=== PATIENT | female | born 1990 | race Caucasian/White ===

== ENCOUNTER 2018-06-12 20:43 | Emergency (ER) | payer OTHER ==
[~2018-06-12 20:43] MED LIST: BISM-40 PO; DICY10CA62 PO; DIPH-1 PO; NAP250 PO; NORG1TAB74 PO; NORG1TAB76 PO; RIZA10TA22 PO; TRAN650T5 PO; TREXAMET; [UNRECOGNIZED DRUG - CODE] PO
--- NOTE | 2018-06-12 20:47 | ER Report ---
History and Physical Time Seen By MD: 20:45 HPI/ROS CHIEF COMPLAINT: Right ankle injury HISTORY OF PRESENT ILLNESS: 27-year-old female was rollerblading when she fell, rolling over the outer aspect of her right ankle. She's complaining of severe pain. She felt a popping sensation in her ankle. She notes 6/10 throbbing pain aggravated by movement and weightbearing. She denies any other injuries. Allergies: Coded Allergies: adhesive (Verified Adverse Reaction, Mild, 06/12/18) Home Meds Active Scripts Hydrocodone Bit/Acetaminophen (HYDROCODON-ACETAMINOPHEN 5-325) 1 Each Tablet, 1 EACH PO Q4-6H PRN for PAIN, #15 TAKE ONE TABLET BY MOUTH EVERY 4-6 HOURS NEEDED FOR PAIN Prov:EZEQUIEL WYNNE DO 06/12/18 Ondansetron 4 Mg Odt (ONDANSETRON 4 MG ODT) 4 Mg Tab.rapdis, 4 MG PO Q6H PRN for NAUSEA/VOMITING, #15 TAB Prov:EZEQUIEL WYNNE 06/12/18 Reported Medications Etonogestrel/Ethinyl Estradiol (NUVARING VAGINAL RING) 1 Each Vag.ring, 1 EACH VG, VAG.RING 06/12/18 Reviewed Nurses Notes: Yes Old Medical Records Reviewed: Yes Smoking Status: Never Smoker Hx Substance Use Disorder: No Hx Alcohol Use: Yes (4-5 EVERY COUPLE OF WEEKS) Constitutional Vital Sign - Last 24 Hours 06/12/18 06/12/18 20:46 21:32 Temp 98.2 Pulse 120 115 Resp 18 18 B/P (MAP) 136/86 109/87 (94) Pulse Ox 97 97 O2 Delivery Room Air Room Air Physical Exam General appearance: Alert no distress. Respiratory: Chest is non tender, lungs are clear to auscultation. Cardiac: Regular rate and rhythm Extremities: Examination of the right lower extremity reveals soft tissue swelling and tenderness both medially and laterally. There is minimal swelling. The forefoot is unremarkable. It is neurovascularly intact. Patient de monstrates decreased range of motion of the ankle secondary to pain. DIFFERENTIAL DIAGNOSIS: After history and physical exam differential diagnosis was considered for sprain, strain, fracture, dislocation, contusion. Medical Decision Making EKG/Imaging Imaging X-ray: Right ankle, 3 views was obtained. I viewed the images myself on the PACS system. My interpretation of the images is: There is a nondisplaced fracture on the posterior segment of the distal tibia. The radiologist interpretation had no clinically significant variation from this interpretation. ED Course/Re-evaluation ED Course Patient was admitted to an examination room. H&P was done. The differential diagnoses was considered. On clinical examination. Patient has right ankle pain. She has significant injury. Diagnostic x-rays are performed. Patient was offered medication for pain but declined. Her x-rays show a nondisplaced fracture of the posterior aspect of the tibia. Patient's placed in a posterior splint by nursing staff. It was checked by myself after application and shows good placement and alignment and the distal toes are neurovascularly intact. And provided with crutches. Patient given a prescription for Lortab for additional pain relief. She is advised to continue ibuprofen 600 mg 3 times daily. Patient's given information to follow up with [facility] for casting and management of her fracture. Decision to Disposition Date: June 12, 2018 Decision to Disposition Time: 21:21 Depart Departure Latest Vital Signs Vital Signs Date Time Temp Pulse Resp B/P (MAP) Pulse Ox O2 Delivery O2 Flow Rate FiO2 06/12/18 21:32 115 18 109/87 (94) 97 Room Air 06/12/18 20:46 98.2 Impression: Primary Impression: Tibia fracture Condition: Improved Disposition: HOME OR SELF-CARE Referrals: VANIA REYES MD (PCP) DEXTER VILLASENOR MD New Scripts Hydrocodone Bit/Acetaminophen (HYDROCODON-ACETAMINOPHEN 5-325) 1 Each Tablet 1 EACH PO Q4-6H PRN for PAIN, #15 TAKE ONE TABLET BY MOUTH EVERY 4-6 HOURS NEEDED FOR PAIN Prov: EZEQUIEL WYNNE DO 06/12/18 Ondansetron 4 Mg Odt (ONDANSETRON 4 MG ODT) 4 Mg Tab.rapdis 4 MG PO Q6H PRN for NAUSEA/VOMITING, #15 TAB Prov: EZEQUIEL WYNNE DO 06/12/18 Patient Instructions: Ankle Fracture (ED) Additional Instructions: Follow-up with [facility]opedic group [phone], address [address] in 2-3 days for casting Problem Qualifiers Primary Impression: Tibia fracture Encounter type: initial encounter Tibia location: distal Fracture type: closed Fracture morphology: unspecified fracture morphology Laterality: right Qualified Codes: S82.301A - Unspecified fracture of lower end of right tibia, initial encounter for closed fracture EZEQUIEL WYNNE DO June 12, 2018 20:47
[2018-06-12] MEDS ORDERED: ETON1VAG7 VG (20:56)
--- NOTE | 2018-06-12 21:15 | RADIOLOGY IMAGING REPORT ---
FACILITY: [facility] - [place] PATIENT NAME: Cinda Roman : 1990 MR: [id number] V: [id number] EXAM DATE: ORDERING PHYSICIAN: EZEQUIEL WYNNE TECHNOLOGIST: Location: [facility] - [place] Patient: Cinda Roman : 1990 Visit/Account:[id number] Date of Sevice: 06/12/2018 EXAMINATION: Right ankle 3 views HISTORY: Injury. Rolled ankle. COMPARISON: None. FINDINGS: On the lateral view there is linear lucency extending vertically along the posterior malleolus of the tibia. While this partially aligns with the posterior margin of the superimposed fibula, appearance is moderately concerning for a nondisplaced posterior malleolus fracture. The medial and lateral malleoli appear intact. Joint space is preserved along the ankle mortise. Likely ankle joint effusion noted on the lateral view. IMPRESSION: Suspected nondisplaced fracture of the posterior malleolus on the lateral view, with a l ikely ankle joint effusion. Report Dictated By: Eric Real MD at 06/12/2018 9:08 PM Report E-Signed By: Eric Real MD at 06/12/2018 9:12 PM WSN:[id number]
[2018-06-12] MEDS ORDERED: ONDANSETRON 4 MG ODT TH SL ONE (21:20)
[2018-06-12] MEDS ORDERED: ACET/HYDROC 5/325MG TH ER ONLY 2 TAB/BOTTLE PO ONE (21:20)
[2018-06-12] MEDS ORDERED: LOR5/325 PO (21:23)
[2018-06-12] MEDS ORDERED: ONDA4TAB9 PO (21:23)
[2018-06-12 21:32] VITALS: BP 109/87
== END 2018-06-12 21:35 | disposition home or self-care (01) ==
LOC: ER 21:02
DX: S82.301A Unspecified fracture of lower end of right tibia, initial encounter for closed fracture (principal); W18.39XA Other fall on same level, initial encounter; Y93.51 Activity, roller skating (inline) and skateboarding
CPT/HCPCS: 29505; 73610; 99283; S0119

== ENCOUNTER → 2018-06-27 | Outpatient (CLI) | payer OTHER ==
[~2018-06-27] MED LIST changes: +ETON1VAG7 VG; +LOR5/325 PO; +ONDA4TAB9 PO
--- NOTE | 2018-06-27 15:33 | RADIOLOGY IMAGING REPORT ---
FACILITY: [facility] [place] PATIENT NAME: Cinda Roman : 1990 MR: [id number] V: [id number] EXAM DATE: [id number] ORDERING PHYSICIAN: TABITHA KAMARA TECHNOLOGIST: Location: [facility] - [place] Patient: Cinda Roman : 1990 Visit/Account:[id number] Date of Sevice: 06/27/2018 Exam type: ANKLE 3 VIEW MIN RIGHT History: Right ankle distal fibula fracture, posterior talar fracture Comparison: June 12, 2018. Findings: Three views are submitted. Nondisplaced posterior malleolar fracture again seen. There is a faint o blique lucency along the distal metaphysis of the right fibula which is only seen on one view and may represent a superimposed shadow versus a nondisplaced fracture. The ankle mortise appears intact IMPRESSION: 1. Nondisplaced posterior malleolus fracture again seen Faint oblique lucency traverses the distal metaphysis of the right fibula which may represent a super imposed shadow versus a subtle nondisplaced fracture Report Dictated By: Camilla Garcia MD at 06/27/2018 3:25 PM Report E-Signed By: Camilla Garcia MD at 06/27/2018 3:28 PM WSN:[email or web address]
== END ==
LOC: RAD 14:00
PROVIDERS: ATTEND Orthopaedic Surgery
DX: S82.831A Other fracture of upper and lower end of right fibula, initial encounter for closed fracture (principal); S82.62XA Displaced fracture of lateral malleolus of left fibula, initial encounter for closed fracture

== ENCOUNTER → 2018-07-08 | Outpatient (CLI) | payer OTHER ==
--- NOTE | 2018-07-08 19:54 | RADIOLOGY IMAGING REPORT ---
FACILITY: [facility] PATIENT NAME: Cinda Roman : 1990 MR: [id number] V: [id number] EXAM DATE: ORDERING PHYSICIAN: TABITHA KAMARA TECHNOLOGIST: Location: [facility] Patient: Cinda Roman : 1990 Visit/Account:[id number] Date of Sevice: 07/08/2018 INDICATION: . Trauma. DATE: 07/08/2018 7:42 PM. TECHNIQUE: ANKLE 3 VIEW MIN RIGHT COMPARISON: Radiographs June 27, 2018. FINDINGS: Normal alignment without evidence of fracture or dislocation. IMPRESSION: No acute osseous abnormality. Report Dictated By: Gareth Morse MD at 07/08/2018 7:42 PM Report E-Signed By: Gareth Morse MD at 07/08/2018 7:49 PM WSN:[id number]
== END ==
LOC: RAD 18:22
PROVIDERS: ATTEND Orthopaedic Surgery
DX: M25.571 Pain in right ankle and joints of right foot (principal)

== ENCOUNTER → 2018-07-30 | Outpatient (CLI) | payer OTHER ==
--- NOTE | 2018-07-30 08:19 | RADIOLOGY IMAGING REPORT ---
FACILITY: [facility] - [place] PATIENT NAME: Cinda Roman : 1990 MR: [id number] V: [id number] EXAM DATE: ORDERING PHYSICIAN: TAIBTHA KAMARA TECHNOLOGIST: Location: [facility] Patient: Cinda Roman : 1990 Visit/Account:[id number] Date of Sevice: 07/30/2018 ANKLE 3 VIEW MIN RIGHT Indication: Right ankle pain. Comparison: Multiple right ankle radiographs dating back to 06/12/2018. Findings: 3 views of the right ankle. The posterior malleolus fracture is nearly completely healed. No new acute fracture or dislocation. Normal mineralization, joint spaces, and alignment. Impression: The posterior malleolus fracture is nearly completely healed. No new acute abnormality. Report Dictated By: Rickie Cano MD at 07/30/2018 8:11 AM Report E-Signed By: Rickie Cano MD at 07/30/2018 8:14 AM WSN:[id number]
== END ==
LOC: RAD 07:15
PROVIDERS: ATTEND Orthopaedic Surgery
DX: S82.61XD Displaced fracture of lateral malleolus of right fibula, subsequent encounter for closed fracture with routine healing (principal); S82.64XD Nondisplaced fracture of lateral malleolus of right fibula, subsequent encounter for closed fracture with routine healing

== ENCOUNTER 2018-09-19 15:13 | Outpatient (RCR) | payer OTHER ==
--- NOTE | 2018-07-11 13:48 | PT INITIAL EVALUATION ---
MEDICAL DIAGNOSIS: Right distal fibular fracture, Posterior medial malleolar fracture TREATMENT DIAGNOSIS: Right distal fibular fracture, Posterior medial malleolar fracture DATE OF ONSET: 06/12/18 SUBJECTIVE: Cinda is a 27 year old female presenting to physical therapy following recent tib-fib fracture while playing roller [employer] on Jun 12 2018. Pt was performing a transition and fell resulting in the fracture of her R distal fibula and medial malleoli posterior fracture. For 4 weeks pt has been NWB in a boot and shows good healing that she is able at this time to progress to WBAT. Pt reports that her ankle really isn't that painful, but occasionally swells up still. She is still working but used crutches or a scooter. Pt is leaving for a vacation the day following the eval for 1 week but would like to get started on using her leg. REHAB PROBLEM LIST: Increased Pain Decreased ROM Decreased Strength Decreased Endurance Decreased Balance Decreased Function Decreased ADL's Decreased Mobility Decreased Gait PREVIOUS MEDICAL HISTORY: See EMR OCCUPATION: [employer] OBJECTIVE: Pt presents with a hard boot on the R foot ambulating with crutches without WB on the R foot at all ROM: Ankle ROM (R,L): DF: 6, 15, PF: 23 pain, 43, Inv: 30 pain, 42, Ever: 10 B Strength: Ankle MMT: L only: all 5/5 Palpation: Pt is tender to palpation along the posterior malleolus and lateral fibular fracture sites as well as along the lateral malleolar ligaments. Gait: Pt presents with a hard boot on the R foot ambulating with crutches without WB on the R foot at all. With prompting pt is able to ambulate with approx 30% WB on R LE with good heel strike, and stride length. ASSESSMENT: Cinda shows signs and symptoms consistent with R tib-fib fracture as outlined by the above listed impairments. Physical therapy is indicated for this patient to improve PT function with ADL's, daily mobility, and recreational activity. Short Term Goals In 3 weeks pt will be able to walk 3 laps around the track without AD with good gait mechanics for improved motion with ADL's. In 3 weeks pt will improve R foot and ankle mobility to equal to that of the L for improved function with ADL's. In 6 weeks pt will improve R ankle strength to equal to that of the L for improved function with ADL's. In 6 weeks pt will be able to perform jumping, running, cutting and pivoting sport specific activities without pain for improved function with ADL's. Patient's Goals Have full function of R foot and ankle to return to sport. PLAN: Patient to be seen for Manual Therapy/STM/MET Strengthening/condition Ice/Heat Range of Motion Stretching Iontophoresis Neuromuscular Re-ed Closed Chain Program Electrical Stim Posture/Body mechanics Gait Trg/Balance Trg Home Exercise Program Mech./Manual Traction Therapeutic Activities 3x/Week for 6 Weeks If you have any questions, comments, or concerns about this report or plan, please contact me at . Thank you, Ysabel Medina, PT, DPT, CLT [facility]
--- NOTE | 2018-08-13 11:40 | PT PLAN OF CARE ---
Physician: Byron Thao MD Patient is being seen: 2x/Week Therapist: Ysabel Medina, PT, DPT, CLT Medical Diagnosis: Right distal fibular fracture, Posterior medial malleolar fracture Treatment Diagnosis: Right distal fibular fracture, Posterior medial malleolar fracture Date of Onset: 06/12/18 Date of Initial Evaluation: 07/11/18 Date patient was last seen: 08/13/18 Number of treatments: 10 Number of cancellations/No shows: 0 INTERVENTIONS: Manual Therapy/STM/MET Strengthening/condition Ice/Heat Range of Motion Stretching Iontophoresis Neuromuscular Re-ed Closed Chain Program Electrical Stim Posture/Body mechanics Gait Trg/Balance Trg Home Exercise Program Mech./Manual Traction Therapeutic Activities GOALS: In 3 weeks pt will be able to walk 3 laps around the track without AD with good gait mechanics for improved motion with ADL's. MET In 3 weeks pt will improve R foot and ankle mobility to equal to that of the L for improved function with ADL's. MET In 6 weeks pt will improve R ankle strength to equal to that of the L for improved function with ADL's. In Progress In 6 weeks pt will be able to perform jumping, running, cutting and pivoting sport specific activities without pain for improved function with ADL's. In Progress PATIENT'S GOAL: Have full function of R foot and ankle to return to sport. Status of Patient's Goals: 2/4 MET Patient Compliance: Excellent Prognosis: Good Reasons for continuing therapy: Cinda shows great progress with ankle ROM and strength. Mobility at this time is equal to the contralateral side with strength throughout range improving but still lacking. Further PT is indicated for this patient to improve lingering strength deficits as well as return pt to sport specific activities with equal loading to decrease further injury. ROM: Ankle ROM (R,L): DF: 14, 15, PF: 42, 43, Inv: 42, 42, Ever: 12, 10 Strength: Ankle MMT (R, L): DF: 5/5 B, PF: 5-/5, 5/5, Inv: 4-/5, 5/5, Ever: 5- /5, 5/5 If you have any questions, please feel free to contact me at [phone]. Thank you, Ysabel Medina, PT, DPT, CLT [facility]
--- NOTE | 2018-08-30 11:00 | PT PLAN OF CARE ---
Physician: Byron Thao MD Patient is being seen: 2x/Week Therapist: Ysabel Medina, PT, DPT, CLT Medical Diagnosis: Right distal fibular fracture, Posterior medial malleolar fracture Treatment Diagnosis: Right distal fibular fracture, Posterior medial malleolar fracture Date of Onset: 06/12/18 Date of Initial Evaluation: 07/11/18 Date patient was last seen: 08/29/18 Number of treatments: 12 Number of cancellations/No shows: 2 INTERVENTIONS: Manual Therapy/STM/MET Strengthening/condition Ice/Heat Range of Motion Stretching Iontophoresis Neuromuscular Re-ed Closed Chain Program Electrical Stim Posture/Body mechanics Gait Trg/Balance Trg Home Exercise Program Mech./Manual Traction Therapeutic Activities GOALS: Ankle: In 3 weeks pt will be able to walk 3 laps around the track without AD with good gait mechanics for improved motion with ADL's. MET In 3 weeks pt will improve R foot and ankle mobility to equal to that of the L for improved function with ADL's. MET In 6 weeks pt will improve R ankle strength to equal to that of the L for improved function with ADL's. MET In 6 weeks pt will be able to perform jumping, running, cutting and pivoting sport specific activities without pain for improved function with ADL's. MET Hip: In 4 weeks pt will improve hip and hamstring strength to 5/5 B for improved function with ADL's and decreased compensations. In 4 weeks pt will have no IT band pain with palpation or ADL's for improved function. PATIENT'S GOAL: Have full function of R foot and ankle to return to sport. Status of Patient's Goals: Ankle Goals: 4/4 MET Hip Goals: 2/2 In Progress Patient Compliance: Excellent Prognosis: Good Reasons for continuing therapy: Cinda shows excellent progress with R ankle strength and ROM at this time without pain. Despite progress with ankle pt shows signs and symptoms consistent with R IT band syndrome likely developed from prolonged immobilization of the R LE. PT at this time is to shift focus towards treatment of the R IT band and the likely causal factors including hip weakness and compensation as outlined in the below listed deficits. ROM: Ankle ROM (R,L): DF: 14, 15, PF: 45, 43, Inv: 42, 42, Ever: 12, 10 Strength: Ankle MMT (R, L): DF: 5/5 B, PF: 5/5, 5/5, Inv: 5/5, 5/5, Ever: 5/5, 5/5 Hip MMT (R,L): flexion: 4+/5 with pain, 5/5, ext: 4/5, 5/5, abd: 4+/5, 5/5. Knee: flexion: 5/5 B with pain on R, ext: 5/5 B. Special Test: Eduardo's (-), Trochanteric compression (-) Palpation: Pt is ttp along the distal 1/4 and middle 1/3 of the R IT band with soft tissue restrictions palpable. If you have any questions, please feel free to contact me at [phone]. Thank you, Ysabel Medina, PT, DPT, CLT MTDD
--- NOTE | 2018-09-19 16:32 | PT PLAN OF CARE ---
Physician: Byron Thao MD Patient is being seen: 2x/Week Therapist: Ysabel Medina, PT, DPT, CLT Medical Diagnosis: Right distal fibular fracture, Posterior medial malleolar fracture Treatment Diagnosis: Right distal fibular fracture, Posterior medial malleolar fracture Date of Onset: 06/12/18 Date of Initial Evaluation: 07/11/18 Date patient was last seen: 09/19/18 Number of treatments: 18 Number of cancellations/No shows: 0 INTERVENTIONS: Manual Therapy/STM/MET Strengthening/condition Ice/Heat Range of Motion Stretching Iontophoresis Neuromuscular Re-ed Closed Chain Program Electrical Stim Posture/Body mechanics Gait Trg/Balance Trg Home Exercise Program Mech./Manual Traction Therapeutic Activities GOALS: Ankle: In 3 weeks pt will be able to walk 3 laps around the track without AD with good gait mechanics for improved motion with ADL's. MET In 3 weeks pt will improve R foot and ankle mobility to equal to that of the L for improved function with ADL's. MET In 6 weeks pt will improve R ankle strength to equal to that of the L for improved function with ADL's. MET In 6 weeks pt will be able to perform jumping, running, cutting and pivoting sport specific activities without pain for improved function with ADL's. MET Hip: In 4 weeks pt will improve hip and hamstring strength to 5/5 B for improved function with ADL's and decreased compensations.MET In 4 weeks pt will have no IT band pain with palpation or ADL's for improved function. MET PATIENT'S GOAL: Have full function of R foot and ankle to return to sport. Status of Patient's Goals: Ankle Goals: 4/4 MET Hip Goals: 2/2 MET Patient Compliance: Excellent Prognosis: Good Reasons for discharge from therapy: Benji is to discharge from physical therapy at this time secondary to completion of 5/5 functional goals. At the time of discharge pt shows full ankle and hip strength without pain and full function with ADL's. Ankle ROM remains full without restriction and good stability. All secondary compensations from injury including hip and knee weakness are resolved with normal biomechanics. Upon discharge pt is to continue with HEP to maintain strength and stability gains and gradually progress back to sport specific exercise. ROM: Ankle ROM (R,L): DF: 14, 15, PF: 45, 43, Inv: 42, 42, Ever: 12, 10 Strength: All LE MMT: 5/5 If you have any questions, please feel free to contact me at [phone]. Thank you, Ysabel Medina, PT, DPT, CLT MTDD
== END 2018-09-19 18:00 | disposition home or self-care (01) ==
LOC: PT 15:13
PROVIDERS: ATTEND Orthopaedic Surgery
DX: Z51.89 Encounter for other specified aftercare (principal); S82.831A Other fracture of upper and lower end of right fibula, initial encounter for closed fracture; S82.62XA Displaced fracture of lateral malleolus of left fibula, initial encounter for closed fracture
CPT/HCPCS: 97161